=== PATIENT | male | born 1985 | race Caucasian/White ===

== ENCOUNTER 2024-07-11 08:16 | Emergency (ER) | payer SELFPAY ==
[2024-07-11] MEDS: Dexamethasone 4 MG Tab PO ONE (08:56)
== END 2024-07-11 09:06 | disposition home or self-care (01) ==
LOC: MW.ED 08:16
DX: K13.70 Unspecified lesions of oral mucosa (principal); Z79.899 Other long term (current) drug therapy; Z91.030 Bee allergy status; Z91.048 Other nonmedicinal substance allergy status; Z75.8 Other problems related to medical facilities and other health care
CPT/HCPCS: 99282; J8540